=== PATIENT | female | born 1985 | race Caucasian/White ===

== ENCOUNTER 2023-10-09 09:40 | Emergency (ER) | payer OTHER, SELFPAY ==
[2023-10-09 09:50] VITALS: BP 148/92; PULSE 69; RESP 16; TEMP 36.8; O2SAT 100
[2023-10-09 09:56] VITALS: BP 143/98
--- NOTE | 2023-10-09 10:37 | ED.GENADULT ---
HPI - General Adult General Chief complaint: Recheck/Abnormal Lab/Rx Stated complaint: blood pressure med refill Related Data Home Medications Medication Instructions Recorded Confirmed hydrochlorothiazide 25 mg tablet 25 mg PO DAILY 10/09/23 10/10/23 losartan 50 mg tablet 50 mg PO DAILY 10/09/23 10/10/23 Allergies Allergy/AdvReac Type Severity Reaction Status Date / Time metoclopramide [From Reglan] Allergy Rash Verified 10/10/23 10:11 prochlorperazine Allergy Difficulty Verified 10/10/23 10:11 [From Compazine] Breathing tramadol Allergy Hives Verified 10/10/23 10:10 CEFTRIAXONE SODIUM Allergy Rash Uncoded 10/10/23 10:10 CEPHALEXIN MONOHYDRATE Allergy Rash Uncoded 10/10/23 10:10 PROCHLORPERAZINE EDISYLATE Allergy Difficulty Uncoded 10/10/23 10:10 Breathing PROCHLORPERAZINE MALEATE Allergy Difficulty Uncoded 10/10/23 10:10 Breathing PROMETHAZINE HCL Allergy Difficulty Uncoded 10/10/23 10:10 Breathing Course Course Level of Care: Express Care Visit Vital Signs Vital signs: Vital Signs Temperature 36.8 C 10/09/23 09:50 Pulse Rate 69 10/09/23 09:50 Respiratory Rate 16 10/09/23 09:50 Blood Pressure 148/92 H 10/09/23 09:50 Pulse Oximetry 100 10/09/23 09:50 Oxygen Delivery Room Air 10/09/23 09:50 Temperature 36.8 C 10/09/23 09:50 Pulse Rate 69 10/09/23 09:50 Respiratory Rate 16 10/09/23 09:50 Blood Pressure 143/98 H 10/09/23 09:56 Pulse Oximetry 100 10/09/23 09:50 Oxygen Delivery Room Air 10/09/23 09:50 Medical Decision Making Vital Signs Vital Signs: Vital Signs Temperature 36.8 C 10/09/23 09:50 Pulse Rate 69 10/09/23 09:50 Respiratory Rate 16 10/09/23 09:50 Blood Pressure 148/92 H 10/09/23 09:50 Pulse Oximetry 100 10/09/23 09:50 Oxygen Delivery Room Air 10/09/23 09:50 Temperature 36.8 C 10/09/23 09:50 Pulse Rate 69 10/09/23 09:50 Respiratory Rate 16 10/09/23 09:50 Blood Pressure 143/98 H 10/09/23 09:56 Pulse Oximetry 100 10/09/23 09:50 Oxygen Delivery Room Air 10/09/23 09:50 Discharge Plan Discharge Patient Disposition: Left Without Being Sn Triaged Prescriptions: No Action losartan 50 mg tablet 50 mg PO DAILY hydrochlorothiazide 25 mg tablet 25 mg PO DAILY hydrochlorothiazide 25 mg tablet 25 mg PO DAILY Qty: 30 0RF losartan 50 mg tablet 50 mg PO DAILY Qty: 30 0RF ibuprofen 600 mg tablet 600 mg PO TID PRN (Reason: pain) Qty: 30 0RF Follow-up/Referrals: Zoë,Hugo Marie MD [Primary Care Provider] - Time of Disposition: 10:43
== END 2023-10-09 10:43 | disposition left against medical advice (07) ==
LOC: EXPBETH 09:47
PROVIDERS: Emergency Provider Registered Nurse; PCP Internal Medicine
DX: Z53.21 Procedure and treatment not carried out due to patient leaving prior to being seen by health care provider (principal)
CPT/HCPCS: 99199

== ENCOUNTER 2023-10-10 09:52 | Emergency (ER) | payer OTHER, SELFPAY ==
[2023-10-10 09:57] VITALS: BP 159/102; PULSE 70; RESP 20; TEMP 36.6; O2SAT 100
--- NOTE | 2023-10-10 10:07 | ED.GENADULT ---
HPI - General Adult General Chief complaint: Unspecified Stated complaint: Medication Refill Time Seen by Provider: 10/10/23 10:07 Source: patient, RN notes reviewed and old records reviewed Mode of arrival: ambulatory Limitations: no limitations History of Present Illness HPI narrative: 37 year female to Express Care requesting medication refill. Patient reports that she is in between primary care providers. Patient states that she has an appointment in February with her new PCP. Patient endorses history of hypertension and states that she has been without her medication several days and is now experiencing severe headache. Patient anxious and tearful in exam room. Patient denies chest pain, shortness of breath, visual changes, dizziness, activity intolerance, extremity edema. Patient able to tolerate fluids by mouth. Respirations even and nonlabored. Patient in no acute distress. Related Data Home Medications Medication Instructions Recorded Confirmed hydrochlorothiazide 25 mg tablet 25 mg PO DAILY 10/09/23 10/10/23 losartan 50 mg tablet 50 mg PO DAILY 10/09/23 10/10/23 Allergies Allergy/AdvReac Type Severity Reaction Status Date / Time metoclopramide [From Reglan] Allergy Rash Verified 10/10/23 10:11 prochlorperazine Allergy Difficulty Verified 10/10/23 10:11 [From Compazine] Breathing tramadol Allergy Hives Verified 10/10/23 10:10 CEFTRIAXONE SODIUM Allergy Rash Uncoded 10/10/23 10:10 CEPHALEXIN MONOHYDRATE Allergy Rash Uncoded 10/10/23 10:10 PROCHLORPERAZINE EDISYLATE Allergy Difficulty Uncoded 10/10/23 10:10 Breathing PROCHLORPERAZINE MALEATE Allergy Difficulty Uncoded 10/10/23 10:10 Breathing PROMETHAZINE HCL Allergy Difficulty Uncoded 10/10/23 10:10 Breathing Review of Systems Review of Systems: All systems reviewed & are unremarkable except as noted in HPI and below Constitutional: Constitutional: Reports no additional constitutional complaints Eyes: Eyes: Reports no additional eye complaints ENT: Reports system reviewed and no additional complaints, except as documented Cardiovascular: Cardiovascular: Reports no additional cardiovascular complaints, Denies chest pain and Denies dyspnea Respiratory: Respiratory: Reports no additional respiratory complaints, Denies cough and Denies dyspnea Musculoskeletal: Musculoskeletal: Reports no additional musculoskeletal complaints Neurologic: Reports system reviewed and no additional complaints, except as documented Psychiatric: Psychiatric: Reports no additional psychiatric complaints PMFSH Comments At the time of my signature, I reviewed and agree with the nursing past medical, surgical, social, and family history. There is no relevant family history pertinent to the patient complaint. Exam Const: General: cooperative, healthy appearing, no acute distress, alert, anxious and well nourished Nutritional Appearance: well nourished Orientation/consciousness: patient oriented x3 Limitations: no limitations HENMT: Head: normal to inspection Ears: external ears normal Face/Nose/Sinus: Normal external nose present, Normal nares present, normal facial exam, No erythema and No edema Face and sinus: normal facial exam, no erythema and no edema Mouth: Yes Normal oral and palatal mucosa present Eyes: General: appearance normal, both eyes and all related structures Neck: Neck: normal visual inspection, full ROM and no meningeal signs Chest: Chest palpation & inspection: normal inspection of the chest Resp: Effort & Inspection: normal respiratory effort and able to speak in complete sentences Auscultation: clear to auscultation bilaterally Cardio: Jugular venous distension: no JVD Rate: regular rate Rhythm: regular rhythm Back/Spine/Pelvis: Cervical Spine: cervical ROM normal Skin: General skin exam: normal color, no rashes or lesions noted and turgor normal Neuro: General: patient oriented x3, gait normal, moves all extremiti
== END 2023-10-10 10:23 | disposition home or self-care (01) ==
PROVIDERS: Emergency Provider Nurse Practitioner Family; PCP Internal Medicine
DX: R51.9 Headache, unspecified (principal); I10 Essential (primary) hypertension
CPT/HCPCS: 99213; G0463